=== PATIENT | female | born 1965 | race Caucasian/White ===

== ENCOUNTER 2020-08-16 06:40 | Emergency (ER) | payer BC, SELFPAY ==
--- NOTE | ~2020-08-16 | XR_ITS ---
XR abdomen/kub 1V DATE: 08/16/2020 08:16 INDICATION: Left flank pain TECHNIQUE: AP projection, 2 views COMPARISON: 08/16/2020 CT abdomen pelvis FINDINGS: There is an approximately 7 mm calcified calculus of the left renal pelvis several addition al small calcified nonobstructing left renal calculi are noted. No right renal calcified calculus. The psoas shadows are intact. No visceromegaly is evident. The bowel gas pattern is unremarkable, without evidence of obstruction. IMPRESSION: Left nephrolithiasis Reviewed, dictated and finalized at [facility]. Reviewed, dictated and finalized at [facility]. IMPRESSION: Left nephrolithiasis
--- NOTE | ~2020-08-16 | CT_ITS ---
EXAMINATION: CT abdomen pelvis wo con DATE: 08/16/2020 07:26 INDICATION: Left flank pain. History of kidney stones. TECHNIQUE: Computed tomography (CT) of the abdomen and pelvis was performed without intravenous contr ast. The dose-length product was 246.27 mGy-cm. Automated exposure control and iterative reconstructi on technique were employed. COMPARISON: 06/09/2010. FINDINGS: Lung bases are unremarkable. Heart size normal. No significant vascular abnormality. Tiny f at-containing umbilical hernia. There is a 7 mm left renal pelvis stone. There are multiple additiona l 2-3 mm left renal stones. Gallbladder is not identified, possibly surgically absent. The liver, spleen, pancreas, adrenal gland s and right kidney are unremarkable. No abnormal pelvic masses or fluid collections. Nonobstructive b owel gas pattern. No free air or free fluid. Mild levocurvature of the lumbar spine. IMPRESSION: 1. Left renal pelvic stone measuring 7 mm. 2: Nonobstructing left nephrolithiasis. Reviewed, dictated and finalized at [facility].
[2020-08-16 06:44] VITALS: BP 119/81; PULSE 70; RESP 18; TEMP 36.6; O2SAT 100
[2020-08-16 07:06] LABS: Basophils Percent Auto 0.2 % (0.2-1.2); Eosinophils Absolute Auto 0.1 K/mm3 (0-0.3); Eosinophils Percent Auto 2.4 % (0-4.4); Hematocrit 45.6 % (37.0-47.0); Immature Granulocyte Absolute 0.01 K/mm3 (0.00-0.031); Immature Granulocyte Percent A 0.2 % (0-0.5); Lymphocytes Absolute Auto 2.03 K/mm3 (0.9-3.2); Lymphocytes Percent Auto 44.5 % (18.3-44.2); Mean Corpuscular HGB Conc 32.9 g/dl (32-36); Mean Corpuscular Volume 94.2 fl (80-100); Mean Platelet Volume 10.5 fl (7.4-10.4); Monocytes Absolute Auto 0.4 K/mm3 (0.1-0.6); Monocytes Percent Auto 7.7 % (2.6-8.5); Neutrophils Absolute Auto 2.1 K/mm3 (1.3-6.7); Platelet Count Result 217 k/mm3 (150-375); Red Blood Count 4.84 M/mm3 (4.2-5.4); Red Cell Distribution Width 13.5 % (11.5-14.5); White Blood Count 4.6 K/mm3 (4.5-10.0)
[2020-08-16 07:15] LABS: Add Urine Microscopic? YES; Appearance Urine Cloudy (Clear); Bacteria Urine Trace /hpf; Bilirubin Urine Negative (Negative); Blood Urine Negative (Negative); Color Urine Yellow (Yellow); Glucose Urine UA Negative (Negative); Ketones Urine Negative (Negative); Leukocyte Esterase Ur Negative LEU/UL (Negative); Mucus Urine Rare /lpf; Nitrate Urine Negative (Negative); Protein Urine Negative (Negative); RBC Urine 21-50 /hpf (0-2); Specific Grav Ur 1.019 (1.001-1.035); Squamous Epithelial Cell Urine Moderate /hpf (Few); Urobilinogen Urine Negative mg/dL (<2.0); WBC Urine 0-3 /hpf
[2020-08-16 07:17] LABS: Alanine Aminotransferase 23 U/L (4-35); Albumin Level 4.9 g/dL (3.5-5.1); Alkaline Phosphatase 64 U/L (38-126); Anion Gap 7 mmol/L (8-16); Aspartate Amino Transferase 27 U/L (14-36); Bilirubin,Total 0.5 mg/dL (0.2-1.3); Blood Urea Nitrogen 26 mg/dL (7-17); Calcium 10.3 mg/dL (8.4-10.2); Carbon Dioxide 31 mmol/L (22-30); Chloride 102 mmol/L (98-107); Estimated CRCL calculation 69 ml/min; Estimated Glomerular Filt Rate > 60; Glucose 97 mg/dL (65-105); Potassium 3.9 mmol/L (3.4-5.0); Sodium 140 mmol/L (137-145)
--- NOTE | 2020-08-16 07:41 | ED.GENADULT ---
HPI - General Adult General Chief complaint: Abdominal Pain Stated complaint: kidney stone Time Seen by Provider: 08/16/20 07:08 Source: patient History of Present Illness HPI narrative: Patient is a 55 y/o female complaining of left side pain starting approximately 4 hours ago. She describes her pain dull and sharp sometimes. She rates it as 5-6/10. There is no pain radiation. She has some nausea, but no vomiting. She has no dysuria or hematuria. She states that she had history of kidney stone. Related Data Home Medications Medication Instructions Recorded Confirmed rizatriptan 10 mg tablet 10 mg PO Q2-4H PRN tablet 07/08/19 04/13/20 ibuprofen 800 mg tablet 800 mg PO Q6H PRN 05/17/20 Allergies Allergy/AdvReac Type Severity Reaction Status Date / Time ioversol Allergy Unknown Difficulty Verified 08/16/20 06:47 breathing dexamethasone Allergy Other Verified 08/16/20 06:48 Contrast Media Allergy Unknown RASH Uncoded 08/16/20 08:42 Review of Systems Constitutional: Constitutional: Denies chills, Denies fever(s), Denies headache(s) and Denies weakness Eyes: Eyes: Denies blurry vision ENT: Denies headache(s) and Denies neck pain Cardiovascular: Cardiovascular: Denies chest pain and Denies dyspnea Respiratory: Respiratory: Denies cough and Denies dyspnea Gastrointestinal: Gastrointestinal: Denies abdominal pain, Denies diarrhea, Reports nausea and Denies vomiting Genitourinary: Genitourinary: Reports as per HPI, Denies hematuria, Denies dysuria and Reports flank pain Musculoskeletal: Musculoskeletal: Denies back pain and Denies neck pain Neurologic: Denies headache(s) and Denies weakness [facility] Past Medical History Medical History Abnormal finding on chest xray Acute bronchitis Benign essential HTN Chest pain Chronic anxiety Colon cancer screening Cough 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 Encounter for wellness examination in adult Exposure to COVID-19 virus Gastritis Irritable bowel syndrome with constipation and diarrhea Menorrhagia with irregular cycle Migraine without aura and responsive to treatment Osteoarthritis involving multiple joints on both sides of body Personal history of malignant melanoma Renal and ureteric calculus Family History Family History Mother Diabetes mellitus Hypertension Acute myocardial infarction Family history of Parkinson's disease Family history of coronary artery disease Sibling Diabetes mellitus Family history of gout Hypertension Patient's sister is in good health Patient's brother is in good health Father Family history of gout Hypertension Patient's father is in good health Grandparent Acute myocardial infarction, Onset Age: 74 Social History Social History Smoking status: Former smoker Smoking end date: 05/28/88 Alcohol intake: current Exam Const: General: no acute distress and well developed Orientation/consciousness: oriented to person, oriented to place, oriented to time and patient oriented x3 HENMT: Head: normocephalic Ears: external ears normal General nose exam: Normal external nose present Eyes: General: appearance normal, both eyes and all related structures Conjunctivae: conjunctivae normal Neck: Neck: normal visual inspection and full ROM Chest: Chest palpation & inspection: normal inspection of the chest and no tenderness Resp: Effort & Inspection: normal respiratory effort Auscultation: clear to auscultation bilaterally Cardio: Rate: regular rate Rhythm: regular rhythm GI: GI Palp: No abdominal tenderness and Yes Soft to palpation Skin: General skin exam: normal color and turgor normal Neuro: General: oriented to person, oriented to place, oriented to time and patient oriented x3 Cognition (Neuro): normal cognition Extrem: G
[2020-08-16] MEDS: KETOROLAC 30 MG/ML VIAL (*BKC) IV PUSH (07:55)
[2020-08-16] MEDS: SODIUM CHLORIDE 0.9% IV 1,000 ML 999 ML IV CONT (07:56)
[2020-08-16] MEDS: ONDANSETRON INJ 4 MG/2 ML VIAL IV PUSH (08:32)
[2020-08-16 09:31] VITALS: BP 123/75; PULSE 56; RESP 16; O2SAT 100
== END 2020-08-16 09:32 | disposition home or self-care (01) ==
PROVIDERS: Emergency Medicine; Emergency Provider Emergency Medicine; PCP Family Medicine
DX: N20.0 Calculus of kidney (principal); I10 Essential (primary) hypertension; Z86.16 Personal history of COVID-19; Q79.60 Ehlers-Danlos syndrome, unspecified; K58.2 Mixed irritable bowel syndrome; M19.90 Unspecified osteoarthritis, unspecified site; Z87.442 Personal history of urinary calculi; Z87.891 Personal history of nicotine dependence
CPT/HCPCS: 36415; 74018; 74176; 80053; 81001; 85025; 96361; 96374; 96375; 99284; J1885; J2405; J7030

== ENCOUNTER 2020-08-20 01:26 | Day surgery (SDC) | payer BC, SELFPAY ==
[2020-08-18 08:54] VITALS: BMI 27.4
--- NOTE | 2020-08-19 09:58 | WPDANESEPPF ---
Anes - Initial Pre Proc Eval Procedure: Operation Date: 08/20/20 08:30 Proposed Procedures p Left Extracorporeal Shock Wave Lithotripsy - Jose A Gee MD Date/Time: 08/19/20 09:58 Surgeon: Jose A Gee MD Pre Op Diagnosis: Left Renal stone Patient Data Age: 55 Gender: F Height: 1.63 m Weight: 72.5 kg Allergies Allergy/AdvReac Type Severity Reaction Status Date / Time Iodinated Contrast Media Allergy Unknown Rash Verified 08/20/20 06:10 ioversol Allergy Unknown Difficulty Verified 08/18/20 08:50 breathing dexamethasone AdvReac Other Verified 08/18/20 08:50 Contrast Media Allergy Unknown RASH Uncoded 08/18/20 08:50 Home Medications Medication Instructions Recorded Confirmed Type rizatriptan 10 mg tablet 10 mg PO Q2-4H PRN tablet 07/08/19 08/20/20 History hydrocodone 7.5 mg-acetaminophen 1 tablet PO Q4H PRN #30 tablet 04/13/20 08/18/20 Rx 325 mg tablet hydrocodone-acetaminophen 1 tablet PO Q6H PRN #20 tablet 08/16/20 08/18/20 Rx alprazolam 0.25 mg PO HS 08/18/20 08/20/20 History amlodipine 5 mg PO HS 08/18/20 08/20/20 History ascorbic acid (vitamin C) [Vitamin 1 g PO HS 08/18/20 08/20/20 History C] calcium carbonate-vitamin D2 1 tablet PO HS 08/18/20 08/20/20 History [Calcium + Vitamin D] cholecalciferol (vitamin D3) 4,000 unit PO HS 08/18/20 08/20/20 History [Vitamin D3] irbesartan 300 mg PO HS 08/18/20 08/20/20 History meloxicam 15 mg PO HS 08/18/20 08/20/20 History vitamin R86-skpli acid 1 tablet PO HS 08/18/20 08/20/20 History Patient hx anesthesia problems: none Family hx anesthesia problems: none PMFSH Past Medical History Medical History Abnormal finding on chest xray Acute bronchitis Benign essential HTN Chest pain Chronic anxiety Colon cancer screening Cough 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 Encounter for wellness examination in adult Exposure to COVID-19 virus Gastritis Irritable bowel syndrome with constipation and diarrhea Menorrhagia with irregular cycle Migraine without aura and responsive to treatment Osteoarthritis involving multiple joints on both sides of body Personal history of malignant melanoma Renal and ureteric calculus Family History Family History Mother Diabetes mellitus Hypertension Acute myocardial infarction Family history of Parkinson's disease Family history of coronary artery disease Sibling Diabetes mellitus Family history of gout Hypertension Patient's sister is in good health Patient's brother is in good health Father Family history of gout Hypertension Patient's father is in good health Grandparent Acute myocardial infarction, Onset Age: 74 Social History Social History Smoking packs per day: 2.5 Smoking cigarettes per day: 50.0 Years smoked: 10 Smoking pack-years: 25.00 Smoking status: Former smoker Smoking end date: 02/25/89 Alcohol intake: current Drinks per week: 2 Substance use: never Substance use type: does not use Living arrangements: with family Spiritual care concerns: No Anes - Eval Final PreProcedure Day of Procedure 08/19/20 09:58 Patient weight: overweight Heart: regular rate and rhythm Lungs: clear to auscultation and normal air movement Airway: Mallampati scale class II Neurological: alert and oriented Last oral intake: >/= 8 hours ASA classification: III Emergent: no Anesthetic plan: proceed Anesthesia type and monitoring: general LMA and standard monitoring Informed Consent: The patient's anesthetic plan and its attendant risks and benefits were discussed with the patient/family/POA. Questions were solicited and answers provided to the satisfaction of the patient/family/POA.
[2020-08-20] VITALS (13 sets, daily range): BP systolic 112–150; BP diastolic 52–98; PULSE 56–74; RESP 12–20; TEMP 36.1–36.7; O2SAT 94–100
--- NOTE | ~2020-08-20 | XR_ITS ---
XR abdomen/kub 1V DATE: 08/20/2020 06:48 INDICATION: Lithotripsy. Nephrolithiasis. TECHNIQUE: AP projection, 2 views COMPARISON: 08/16/2020 KUB FINDINGS: There is a 7 mm rounded calcification overlying the left renal pelvis and the 3 small calci fications overlying the upper and lower pole of the left kidney. No right renal calcifications are noted. No calcifications are noted overlying the ureters. The psoas shadows are intact. No visceromegaly. There is a prominent amount fecal material in the colon but no evidence of bowel obstruction. IMPRESSION: Left nephrolithiasis Reviewed, dictated and finalized at [facility]. Reviewed, dictated and finalized at [facility]. IMPRESSION: Left nephrolithiasis
--- NOTE | 2020-08-20 06:05 | ECG_ITS ---
Measurements Intervals [place] Rate: 65 P: 45 CA: 158 QRS: -20 QRSD: 102 T: 17 QT: 396 QTc: 413 Interpretive Statements SINUS RHYTHM INCOMPLETE RIGHT BUNDLE BRANCH BLOCK BORDERLINE ECG Electronically Signed On 08-20-2020 7:56:11 CDT by Domenic Vale D.O.
--- NOTE | 2020-08-20 06:34 | WPDHPUPDATE1 ---
History and Physical Update Update Date/Time: 08/20/20 06:34 History and Physical has been reviewed, including an updated exam of the patient. There are NO changes in the patient's condition. Risks, benefits, and alternatives have been discussed and questions answered. Patient agrees to proceed with procedure.
[2020-08-20] MEDS: LACTATED RINGERS 1,000 ML 30 ML IV CONT ×2 (07:40→09:21)
[2020-08-20 07:57] LABS: INR 0.8; Prothrombin Time 11.7 Seconds (11.1-14.7)
[2020-08-20 07:58] LABS: Partial Thromboplastin Time 26.6 SECONDS (22.3-36.8)
[2020-08-20] MEDS: ceFAZolin 2 GM/D5W 50 ML 2 GM/50 ML BAG IVPB (08:38)
--- NOTE | 2020-08-20 08:55 | PM.PROC ---
Procedure Note - Detailed Date of procedure: 08/20/20 Pre-op diagnosis: Left Renal stone Post-op diagnosis: same Procedure performed: Left ESWL Description of procedure: The patient was brought to the operative suite where she was placed in the supine position on the Dornier lithotripsy table. The focal point of the lithotripter was placed at a calcified, 7mm left renal calculus. A total of 2500 shocks were delivered at a power setting of 4. There appeared to be good fragmentation of the stone. The patient tolerated the procedure well and was taken to the recovery room in good condition. Anesthesia: GLMA Surgeon: Jose A Gee MD Drains: No Packing: No Pathology: none sent Complications: No immediate complications Condition: stable Disposition: PACU
[2020-08-20] MEDS: fentaNYL CITRATE INJ (*CRX) 100 MCG/2 ML VIAL 25 MCG IV PUSH ×4 (09:31→09:45)
[2020-08-20] MEDS: ONDANSETRON INJ 4 MG/2 ML VIAL IV PUSH (09:40)
[2020-08-20] MEDS: HYDROmorphone HCL INJ (*CRX) 1 MG/ML SYR 0.5 MG IV PUSH ×2 (09:58→10:04)
--- NOTE | 2020-08-20 10:49 | ECG_ITS ---
Measurements Intervals [place] Rate: 70 P: 40 VT: 154 QRS: -15 QRSD: 101 T: 0 QT: 395 QTc: 427 Interpretive Statements SINUS RHYTHM WITH SINUS ARRHYTHMIA INCOMPLETE RIGHT BUNDLE BRANCH BLOCK NONSPECIFIC T-WAVE ABNORMALITY- ANT/INF LEADS BASELINE ARTIFACT- I, II, III, AVR, AVL, AVF BORDERLINE ECG Electronically Signed On 08-20-2020 12:18:27 CDT by Domeinc Vale D.O.
--- NOTE | 2020-08-20 10:58 | SUR.PHASEII ---
1044- RN into room and patient complaining of pain to right shoulder and left mid chest eipgastric area. Patient describing chest pressure 3/10 at this time. Palpated patient's chest with no relief to chest pressure. 1046- Call to Dr. Alba to notify him of above and to come see patient in outpatient recovery room 15. 1047- Dr. Alba to outpatient recovery room 15 and patient remains sitting up in recliner. Patient continues to complain of pain to right shoulder and left mid chest eipgastric area. Patient describing chest pressure 3/[address] Alba palpated patient's chest with no relief to chest pressure. Vital signs obtained at this time and remain stable, HR 70, BP 150/71, RR 20, 99% on room air. STAT orders obtained per Dr. Alba for EKG and Troponins. Will continue to monitor patient. 1111- EKG complete and call to Dr. Alba to review it.
--- NOTE | 2020-08-20 11:24 | SUR.PHASEII ---
1120- Dr. Alba reviewed EKG. Troponins remain pending at this time. Notified him patient complaining of chest pressure and right shoulder pain 2 with stable vital signs.
[2020-08-20 11:38] LABS: Troponin I < 0.012 ng/mL (0.000-0.034)
--- NOTE | 2020-08-20 11:50 | SUR.PHASEII ---
1150- Notified Dr. Alba patient's troponins < 0.012. He will see patient at bedside in outpatient recovery room 15.
--- NOTE | 2020-08-20 12:04 | SUR.PHASEII ---
1203- Dr. Alba to outpatient recovery 15 to evaluate patient. Patient reporting chest pressure and right shoulder pain intermittent at this time. Rating pain at 2/10. Vital signs continue to remain stable. 1205- Dr. Alba cleared patient for discharge and patient verbalizing understanding.
--- NOTE | 2020-08-20 12:14 | WPDANESPN ---
Anes - Prog Note Post-Op Date/Time: 08/20/20 12:14 Cardiovascular status: normal Respiratory status: normal Airway patency: baseline Mental status: baseline Post-Op hydration status: normal Vital Signs: Last Vital Signs Temp 36.1 C L 08/20/20 09:21 Pulse 72 08/20/20 12:00 Resp 16 08/20/20 12:00 BP 117/68 08/20/20 12:00 Pulse Ox 97 08/20/20 12:00 Pain Score (VAS): 2 I/O: Intake & Output 08/19/20 08/20/20 08/20/20 23:59 07:59 15:59 Intake Total 550 Balance 550 08/20/20 08/20/20 07:35 10:53 PT 11.7 INR 0.8 APTT 26.6 Troponin I < 0.012 Post-procedural complaints: none Patient Feedback: Patient satisfied with anesthetic care. Other Findings: Called to evaluate patient for chest pressure with radiation to right arm. EKG and troponin obtained. EKG was same as baseline with incomplete RBBB on both prior and present EKG. Troponin negative. After returning to discuss findings with patient, patient states pain is intermittent to resolved. Patient plans to follow up with cardiothoracic at [place] to assess her pulmonary hypertension so I told patient to mention this episode as well. I told patient if this pain returns or worsens to return to ED but otherwise if comfortable is ok to discharge to home.
== END 2020-08-20 12:22 | disposition home or self-care (01) ==
PROVIDERS: Anesthesiology; PCP Family Medicine; Visit Provider Urology
PROC: (CPT 50590; principal; 2020-08-20 08:30)
DX: N20.0 Calculus of kidney (principal); I10 Essential (primary) hypertension; Q79.60 Ehlers-Danlos syndrome, unspecified; K58.2 Mixed irritable bowel syndrome; F41.9 Anxiety disorder, unspecified; M89.49 Other hypertrophic osteoarthropathy, multiple sites; Z85.820 Personal history of malignant melanoma of skin; Z86.16 Personal history of COVID-19; Z87.891 Personal history of nicotine dependence
CPT/HCPCS: 50590; 36415; 74018; 84484; 85610; 85730; 93005; A9270; J0690; J1170; J1200; J1885; J2405; J2704; J3010; J7120

== ENCOUNTER 2020-08-22 03:24 | Observation (INO) | payer BC, SELFPAY ==
[2020-08-22] VITALS (13 sets, daily range): BP systolic 94–147; BP diastolic 51–82; PULSE 47–98; RESP 10–21; TEMP 36–36.8; O2SAT 61–100
--- NOTE | ~2020-08-22 | XR_ITS ---
EXAMINATION: XR abdomen/kub 1V INDICATION: Left flank pain TECHNIQUE: Supine views of the abdomen were obtained on 2 radiographs. COMPARISON: CT from today and KUB dated 08/20/2020 FINDINGS: There is a 7 mm stone projecting at the left ureterovesicular junction. A 3 mm stone projec ts in the distal left ureter. The 6 mm left proximal ureteral stone seen on CT is not definitely iden tified. There are stones of the left kidney lower pole which measure up to 8 mm. A large volume of co lonic stool is noted. The lung bases are clear. There is mild osteoarthritis of the hips. The bowel g as pattern is normal. IMPRESSION: 1. Stones at the left ureterovesicular junction and in the distal left ureter. 2. Left nephrolithiasis. Reviewed, dictated and finalized at location A.
--- NOTE | ~2020-08-22 | XR_ITS ---
EXAMINATION: XR retrograde pyelo w/stent LT INDICATION: Left urolithiasis TECHNIQUE: 40 intraoperative fluoroscopic images are submitted for review. COMPARISON: CT from today FINDINGS: Fluoroscopic images demonstrate moderate left hydronephrosis. A left internal ureteral sten t is in expected position on final images. Please refer to procedure note for full details. IMPRESSION: 1. Left internal ureteral stent in expected position. Please refer to procedure note for full details . Reviewed, dictated and finalized at location A. IMPRESSION: 1. Left internal ureteral stent in expected position. Please refer to procedure note for full details.
--- NOTE | ~2020-08-22 | CT_ITS ---
EXAMINATION: CT abdomen pelvis wo con DATE: 08/22/2020 04:25 INDICATION: Left flank pain TECHNIQUE: Computed tomography (CT) of the abdomen and pelvis was performed without intravenous contr ast. The dose-length product (DLP) was 595.68 mGy-cm. Automated exposure control and iterative recons truction technique were employed. COMPARISON: 08/16/2020 FINDINGS: Minimal dependent atelectasis is present in the lung bases. The heart size is normal. The g allbladder is surgically absent. There is a 9 mm cyst in the right hepatic lobe. The spleen, pancreas , and adrenal glands are normal. There is an 8 mm stone at the left ureterovesicular junction. A 3 mm stone fragment is present in the distal left ureter. A subtle 2 mm x 6 mm nonobstructing stone in th e proximal left ureter. Stone fragments are noted in the left renal pelvis. There is moderate left hy droureteronephrosis. A previously seen stone of the left renal pelvis is no longer evident, consisten t with interval treatment. There are stones measuring up to 7 mm in the lower pole of the left kidney . No pathologically enlarged abdominal or pelvic lymph nodes are identified. No pathologically enlarg ed abdominal or pelvic lymph nodes are identified. There is no free intraperitoneal gas or evidence o f bowel obstruction. There is unchanged mild enlargement of the appendix without additional findings to suggest appendicitis. A fat-containing umbilical hernia is noted. There is mild lumbar spondylosis . IMPRESSION: 1. Stone fragments in the left renal pelvis, proximal ureter, the distal ureter, and at the left uret erovesicular junction causing moderate hydroureteronephrosis. 2. Nonobstructing left nephrolithiasis. Reviewed, dictated and finalized at location A. IMPRESSION: 1. Stone fragments in the left renal pelvis, proximal ureter, the distal ureter , and at the left ureterovesicular junction causing moderate hydroureteronephro sis. 2. Nonobstructing left nephrolithiasis.
--- NOTE | 2020-08-22 03:37 | ED.GENADULT ---
HPI - General Adult General Chief complaint: Urogenital-Female Stated complaint: flank pain Time Seen by Provider: 08/22/20 03:27 History of Present Illness HPI narrative: Patient is a 55-year-old female who presents to the emergency department chief complaint of flank pain patient reports she had lithotripsy on a left-sided kidney stone that was 7 mm in size. Patient states that yesterday she started having us flank pain states that the pain ultimately subsided on its own but tonight the pain started several hours ago she took a Percocet and had no improvement in the pain. The patient states he is unable to get comfortable in any position and feels as though she is been passing multiple stones. Patient reports has had some nausea with this denies fever or chills. Related Data Home Medications Medication Instructions Recorded Confirmed rizatriptan 10 mg tablet 10 mg PO Q2-4H PRN tablet 07/08/19 08/20/20 Vitamin D3 4,000 unit PO HS 08/18/20 08/20/20 alprazolam 0.25 mg PO HS 08/18/20 08/20/20 amlodipine 5 mg PO HS 08/18/20 08/20/20 ascorbic acid (vitamin C) [Vitamin 1 g PO HS 08/18/20 08/20/20 C] calcium carbonate-vitamin D2 1 tablet PO HS 08/18/20 08/20/20 irbesartan 300 mg PO HS 08/18/20 08/20/20 meloxicam 15 mg PO HS 08/18/20 08/20/20 vitamin P65-hmtik acid 1 tablet PO HS 08/18/20 08/20/20 Allergies Allergy/AdvReac Type Severity Reaction Status Date / Time Iodinated Contrast Media Allergy Unknown Rash Verified 08/22/20 03:31 ioversol Allergy Unknown Difficulty Verified 08/22/20 03:31 breathing dexamethasone AdvReac Other Verified 08/22/20 03:31 Contrast Media Allergy Unknown RASH Uncoded 08/18/20 08:50 Review of Systems Review of Systems: Narrative: A 10 system review of systems was completed on the patient and is negative except for what is stated in the HPI. Nursing and ancillary documentation was reviewed. 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 Encounter for wellness examination in adult Exposure to COVID-19 virus Gastritis Irritable bowel syndrome with constipation and diarrhea Menorrhagia with irregular cycle Migraine without aura and responsive to treatment Osteoarthritis involving multiple joints on both sides of body Personal history of malignant melanoma Renal and ureteric calculus Family History Family History Mother Diabetes mellitus Hypertension Acute myocardial infarction Family history of Parkinson's disease Family history of coronary artery disease Sibling Diabetes mellitus Family history of gout Hypertension Patient's sister is in good health Patient's brother is in good health Father Family history of gout Hypertension Patient's father is in good health Grandparent Acute myocardial infarction, Onset Age: 74 Social History Social History Smoking packs per day: 2.5 Smoking cigarettes per day: 50.0 Years smoked: 10 Smoking pack-years: 25.00 Smoking status: Former smoker Smoking end date: 02/25/89 Alcohol intake: current Drinks per week: 2 Substance use: never Substance use type: does not use Spiritual care concerns: No Exam Narrative: Exam Narrative: GENERAL: Well-appearing, well-nourished, and in no acute distress. HEAD: Normocephalic, atraumatic. EYES: PERRLA and EOMI. ENT: Nares clear, no rhinorrhea or epistaxis. Mucous membranes moist. NECK: Supple. CHEST: Clear to auscultation. No respiratory distress. HEART: Regular rate and rhythm. No murmur heard. Normal peripheral pulses. ABDOMEN: Soft, nontender, nondistended, normal active bowel sounds. EXTREMITIES: Yesenia
[2020-08-22] MEDS: SODIUM CHLORIDE 0.9% IV 1,000 ML 999 ML IV CONT (03:49)
[2020-08-22] MEDS: MORPHINE SULFATE (*CRX) 4 MG/ML INJ IV PUSH ×3 (03:49→06:57)
[2020-08-22] MEDS: ONDANSETRON INJ 4 MG/2 ML VIAL IV PUSH (03:49)
[2020-08-22] MEDS: KETOROLAC 30 MG/ML VIAL (*BKC) IV PUSH ×2 (03:49→08:52)
[2020-08-22 03:53] LABS: Basophils Percent Auto 0.3 % (0.2-1.2); Eosinophils Absolute Auto 0.2 K/mm3 (0-0.3); Eosinophils Percent Auto 2.8 % (0-4.4); Hematocrit 42.4 % (37.0-47.0); Hemoglobin 13.8 g/dL (12.0-15.0); Immature Granulocyte Absolute 0.01 K/mm3 (0.00-0.031); Immature Granulocyte Percent A 0.1 % (0-0.5); Lymphocytes Absolute Auto 2.05 K/mm3 (0.9-3.2); Lymphocytes Percent Auto 27.8 % (18.3-44.2); Mean Corpuscular HGB Conc 32.5 g/dl (32-36); Mean Corpuscular Hemoglobin 30.6 pg (26-34); Mean Platelet Volume 10.4 fl (7.4-10.4); Monocytes Absolute Auto 0.6 K/mm3 (0.1-0.6); Monocytes Percent Auto 7.5 % (2.6-8.5); Neutrophils Absolute Auto 4.5 K/mm3 (1.3-6.7); Neutrophils Percent Auto 61.5 % (45.5-73.1); Platelet Count Result 178 k/mm3 (150-375); Red Blood Count 4.51 M/mm3 (4.2-5.4); Red Cell Distribution Width 13.6 % (11.5-14.5); White Blood Count 7.4 K/mm3 (4.5-10.0)
[2020-08-22 04:07] LABS: Alanine Aminotransferase 91 U/L (4-35); Albumin Level 4.5 g/dL (3.5-5.1); Alkaline Phosphatase 79 U/L (38-126); Anion Gap 7 mmol/L (8-16); Aspartate Amino Transferase 44 U/L (14-36); Bilirubin,Total 0.5 mg/dL (0.2-1.3); Blood Urea Nitrogen 24 mg/dL (7-17); Calcium 10.6 mg/dL (8.4-10.2); Carbon Dioxide 30 mmol/L (22-30); Chloride 104 mmol/L (98-107); Estimated CRCL calculation 58 ml/min; Estimated Glomerular Filt Rate 58; Glucose 95 mg/dL (65-105); Potassium 4.1 mmol/L (3.4-5.0); Sodium 141 mmol/L (137-145)
[2020-08-22 05:19] LABS: Add Urine Microscopic? YES; Appearance Urine Clear (Clear); Bacteria Urine Trace /hpf; Bilirubin Urine Negative (Negative); Blood Urine 3+ (Negative); Color Urine Straw (Yellow); Glucose Urine UA Negative (Negative); Ketones Urine Negative (Negative); Leukocyte Esterase Ur Negative LEU/UL (Negative); Mucus Urine Rare /lpf; Nitrate Urine Negative (Negative); Protein Urine 1+ mg/dL (Negative); RBC Urine >75 /hpf (0-2); Specific Grav Ur 1.011 (1.001-1.035); Squamous Epithelial Cell Urine Rare /hpf (Few); Urobilinogen Urine Negative mg/dL (<2.0); WBC Urine 0-3 /hpf
--- NOTE | 2020-08-22 05:49 | ADMGEN ---
This patient, Faby Joaquin, was admitted to 2 Medical Room 259-01 @[facility]. Patient/family oriented to hospital policies and general routines including ID bracelet, bed and alarms, visiting hours, pain management, procedures, bathroom and other care routines, personal items, smoking policy, room service/diet, and visiting hours. Information on how to activate the Rapid Response Team has been discussed. Patient/Family are encouraged to report perceived risks to care and to ask questions if they do not understand what they are told or what they should do.
[2020-08-22] MEDS: SODIUM CHLORIDE 0.9% IV 1,000 ML 125 ML IV CONT (06:08)
--- NOTE | 2020-08-22 09:18 | PM.IMHP ---
H&P: HPI History of Present Illness Date/Time: 08/22/20 09:18 Patient is a pleasant 55-year-old female who is status post ESWL for a 7 mm left renal pelvic stone just 2 days ago. She presented to the ER last night with severe left flank pain, nausea and vomiting. She denied fevers chills. CT imaging revealed several fragments obstructing her left ureter, the largest at the left ureterovesical junction. She was admitted for hydration and analgesics. 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 Encounter for wellness examination in adult Exposure to COVID-19 virus Gastritis Irritable bowel syndrome with constipation and diarrhea Menorrhagia with irregular cycle Migraine without aura and responsive to treatment Osteoarthritis involving multiple joints on both sides of body Personal history of malignant melanoma Renal and ureteric calculus Family History Family History Mother Diabetes mellitus Hypertension Acute myocardial infarction Family history of Parkinson's disease Family history of coronary artery disease Sibling Diabetes mellitus Family history of gout Hypertension Patient's sister is in good health Patient's brother is in good health Father Family history of gout Hypertension Patient's father is in good health Grandparent Acute myocardial infarction, Onset Age: 74 Social History Social History Smoking packs per day: 2.5 Smoking cigarettes per day: 50.0 Years smoked: 10 Smoking pack-years: 25.00 Smoking status: Former smoker Smoking end date: 02/25/89 Alcohol intake: current Drinks per week: 2 Substance use: never Substance use type: does not use Gender identity (if verbalized by the patient): Female Spiritual care concerns: No Meds Home Medications and Allergies Home Medications Medication Instructions Recorded Confirmed Type rizatriptan 10 mg tablet 10 mg PO Q2-4H PRN tablet 07/08/19 08/22/20 History hydrocodone 7.5 mg-acetaminophen 1 tablet PO Q4H PRN #30 tablet 04/13/20 08/22/20 Rx 325 mg tablet hydrocodone-acetaminophen 1 tablet PO Q6H PRN #20 tablet 08/16/20 08/22/20 Rx Vitamin D3 4,000 unit PO HS 08/18/20 08/22/20 History alprazolam 0.25 mg PO HS 08/18/20 08/22/20 History amlodipine 5 mg PO HS 08/18/20 08/22/20 History ascorbic acid (vitamin C) [Vitamin 1 g PO HS 08/18/20 08/22/20 History C] calcium carbonate-vitamin D2 1 tablet PO HS 08/18/20 08/22/20 History irbesartan 300 mg PO HS 08/18/20 08/22/20 History meloxicam 15 mg PO HS 08/18/20 08/22/20 History vitamin H95-jihws acid 1 tablet PO HS 08/18/20 08/22/20 History cephalexin 500 mg PO Q8H #9 cap 08/20/20 08/22/20 Rx Allergies Allergy/AdvReac Type Severity Reaction Status Date / Time Iodinated Contrast Media Allergy Unknown Rash Verified 08/22/20 05:51 ioversol Allergy Unknown Difficulty Verified 08/22/20 05:51 breathing dexamethasone AdvReac Other Verified 08/22/20 05:51 Contrast Media Allergy Unknown RASH Uncoded 08/18/20 08:50 Vital Signs Vital Signs - 24 hr 08/22/20 03:27 08/22/20 04:45 08/22/20 05:40 Temperature 97.3 F L 98.1 F Pulse Rate 71 96 95 Respiratory Rate 20 20 18 Blood Pressure 147/82 H 131/61 130/60 Pulse
--- NOTE | 2020-08-22 09:21 | WPDHPUPDATE1 ---
History and Physical Update Update Date/Time: 08/22/20 09:21 History and Physical has been reviewed, including an updated exam of the patient. There are NO changes in the patient's condition. Risks, benefits, and alternatives have been discussed and questions answered. Patient agrees to proceed with procedure.
--- NOTE | 2020-08-22 10:52 | WPDANESEPPF ---
Anes - Initial Pre Proc Eval Procedure: Operation Date: 08/22/20 09:30 Proposed Procedures p Cysto, RPG, Stone Ext, Stent Placement(Left) - Jose A Gee MD Date/Time: 08/22/20 10:52 Surgeon: Jose A Gee MD Pre Op Diagnosis: Ureterolithiasis Patient Data Age: 55 Gender: F Height: 1.63 m Weight: 78.2 kg Last Vital Signs Temp 36.3 C L 08/22/20 10:00 Pulse 54 L 08/22/20 10:00 Resp 16 08/22/20 10:00 BP 102/51 L 08/22/20 10:00 Pulse Ox 98 08/22/20 10:00 Allergies Allergy/AdvReac Type Severity Reaction Status Date / Time Iodinated Contrast Media Allergy Unknown Rash Verified 08/22/20 05:51 ioversol Allergy Unknown Difficulty Verified 08/22/20 05:51 breathing dexamethasone AdvReac Other Verified 08/22/20 05:51 Contrast Media Allergy Unknown RASH Uncoded 08/18/20 08:50 Home Medications Medication Instructions Recorded Confirmed Type rizatriptan 10 mg tablet 10 mg PO Q2-4H PRN tablet 07/08/19 08/22/20 History hydrocodone 7.5 mg-acetaminophen 1 tablet PO Q4H PRN #30 tablet 04/13/20 08/22/20 Rx 325 mg tablet hydrocodone-acetaminophen 1 tablet PO Q6H PRN #20 tablet 08/16/20 08/22/20 Rx Vitamin D3 4,000 unit PO HS 08/18/20 08/22/20 History alprazolam 0.25 mg PO HS 08/18/20 08/22/20 History amlodipine 5 mg PO HS 08/18/20 08/22/20 History ascorbic acid (vitamin C) [Vitamin 1 g PO HS 08/18/20 08/22/20 History C] calcium carbonate-vitamin D2 1 tablet PO HS 08/18/20 08/22/20 History irbesartan 300 mg PO HS 08/18/20 08/22/20 History meloxicam 15 mg PO HS 08/18/20 08/22/20 History vitamin U04-rogni acid 1 tablet PO HS 08/18/20 08/22/20 History cephalexin 500 mg PO Q8H #9 cap 08/20/20 08/22/20 Rx Laboratory Tests 08/22/20 08/22/20 08/22/20 03:44 03:44 04:34 WBC 7.4 K/mm3 K/mm3 (4.5-10.0) RBC 4.51 M/mm3 M/mm3 (4.2-5.4) Hgb 13.8 g/dL g/dL (12.0-15.0) Hct 42.4 % % (37.0-47.0) MCV 94.0 fl fl (80-100) MCH 30.6 pg pg (26-34) MCHC 32.5 g/dl g/dl (32-36) RDW 13.6 % % (11.5-14.5) Plt Count 178 k/mm3 k/mm3 (150-375) MPV 10.4 fl fl (7.4-10.4) Immature Gran % (Auto) 0.1 % % (0-0.5) Neut % (Auto) 61.5 % % (45.5-73.1) Lymph % (Auto) 27.8 % % (18.3-44.2) [place] % (Auto) 7.5 % % (2.6-8.5) Eos % (Auto) 2.8 % % (0-4.4) Baso % (Auto) 0.3 % % (0.2-1.2) Lymph # (Auto) 2.05 K/mm3 K/mm3 (0.9-3.2) [place] # (Auto) 0.6 K/mm3 K/mm3 (0.1-0.6) Eos # (Auto) 0.2 K/mm3 K/mm3 (0-0.3) Baso # (Auto) 0.0 K/mm3 K/mm3 (0.0-0.1) Abs Immat Gran (auto) 0.01 K/mm3 K/mm3 (0.00-0.031) Absolute Neuts (auto) 4.5 K/mm3 K/mm3 (1.3-6.7) Absolute Nucleated RBC 0.0 K/mm3 K/mm3 (0.0-0.012) Nucleated RBC % 0.0 % % (0.0-0.2) Sodium 141 mmol/L mmol/L (137-145) Potassium 4.1 mmol/L mmol/L (3.4-5.0) Chloride 104 mmol/L mmol/L (98-107) Carbon Dioxide 30 mmol/L mmol/L (22-30) Anion Gap 7 mmol/L L mmol/L (8-16) BUN 24 mg/dL H mg/dL (7-17) Creatinine 1.00 mg/dL mg/dL (0.7-1.0) Estim Creat Clear Calc 58 ml/min ml/min Estimated GFR 58 L (59 - ) Glucose 95 mg/dL mg/dL (65-105) Calcium 10.6 mg/dL H mg/dL (8.4-10.2) Total Bilirubin 0.5 mg/dL mg/dL (0.2-1.3) AST 44 U/L H U/L (14-36) ALT 91 U/L H U/L (4-35) Alkaline Phosphatase 79 U/L U/L (38-126) Total Protein 8.0 g/dL g/dL (6.3-8.2) Albumin 4.5 g/dL g/dL (3.5-5.1) Urine Color Straw (Yellow) Urine Appearance Clear (Clear) Urine pH 6.0 (5.0-9.0) Ur Specific [place] 1.011 (1.001-1.035) Urine Protein 1+ mg/dL H mg/dL (Negative) Urine Glucose (UA) Neg
[2020-08-22] MEDS: ceFAZolin SODIUM 1 GM VIAL 2 GM IV PUSH (11:52)
[2020-08-22] MEDS: LIDOCAINE HCL 2% GEL UROJET 10 ML PKG MUCOUS MEM (11:57)
[2020-08-22] MEDS: LACTATED RINGERS 1,000 ML 30 ML IV CONT (12:07)
--- NOTE | 2020-08-22 12:08 | PM.PROC ---
Procedure Note - Detailed Date of procedure: 08/22/20 Pre-op diagnosis: Ureterolithiasis Post-op diagnosis: same Procedure performed: Cystoscopy, left retrograde pyelography, left ureteroscopy with stone extraction and left ureteral stent placement Description of procedure: patient is brought to the operative suite where she has prepped and draped in routine sterile fashion while in a dorsal lithotomy position. 2% xylocaine jelly was introduced intraurethrally and systemic sedation is administered per the anesthesia department. Cystoscopy is undertaken with a 19 F rigid cystoscope. There were a few small fragments of stone in her bladder. A 0.035 in glidewire was advanced in left renal pelvis. With placement of the wire multiple small stone fragments her extruded from the left distal ureter. I dilated the ureter with an 8 F 10 F dilator. Ureteroscopy was undertaken with a short tapered semi-rigid ureteral scope to the mid left ureter. There are multiple tiny fragments, most of which were extracted with irrigation and a 1.9 F disposable stone basket. There are no significant residual fragments in the ureter at the completion of this procedure, that I can identify. contrast is injected through the ureteral scope to outline the renal pelvis and a 4.8 F variable length stent is placed with the proximal coil in the renal pelvis and distal coil in the bladder. Scopes wires removed. The patient tolerated the procedure well was taken recovery room good condition Anesthesia: MAC Surgeon: Jose A Gee MD Estimated blood loss (mL): 0 Packing: No Pathology: yes Complications: No immediate complications Condition: stable Disposition: PACU
--- NOTE | 2020-08-22 12:10 | PM.DS ---
DS: Admitting Diagnosis Admitting Diagnosis Admitting Diagnosis: Left ureteral calculi DS: Discharge Diagnosis Discharge Diagnosis (1) Ureterolithiasis: Code(s): N20.1 - Calculus of ureter Status: Acute DS: Summary Hospital Course Hospital Course: Patient had undergone ESWL to a 7 mm left renal pelvic stone 2 days prior to readmission. She presented to the ER with acute left renal colic imaging suggested several fragments, from some which may have been sizable, in her left ureter. Following morning she underwent ureteroscopy which revealed multiple tiny fragments lodged at her left ureterovesical junction. These cleared with basket extraction and irrigation. There were no significant residual fragments at the termination of the procedure. A ureteral stent was placed with plans to remove it in 5 days. Following this procedure she was comfortable and tolerated diet. She was discharged later that day. Time Spent with Patient Time attestation: Total time spent providing and/or coordinating discharge services: 30min Exam Const: General: no acute distress Resp: Effort & Inspection: normal respiratory effort GI: Inspection: non-distended GI Palp: No abdominal tenderness and No Guarding due to palpation present (GI) Auscultation: normal bowel sounds DS: Data Data Completed and Pending Pending studies at discharge: Pending at discharge 08/22/20 11:59 Surgical [PTH] Routine Labs on day of discharge: Labs from last 24 hours 08/22/20 08/22/20 08/22/20 04:34 03:44 03:44 WBC 7.4 RBC 4.51 Hgb 13.8 Hct 42.4 MCV 94.0 MCH 30.6 MCHC 32.5 RDW 13.6 Plt Count 178 MPV 10.4 Immature Gran % (Auto) 0.1 Neut % (Auto) 61.5 Lymph % (Auto) 27.8 [place] % (Auto) 7.5 Eos % (Auto) 2.8 Baso % (Auto) 0.3 Lymph # (Auto) 2.05 [place] # (Auto) 0.6 Eos # (Auto) 0.2 Baso # (Auto) 0.0 Abs Immat Gran (auto) 0.01 Absolute Neuts (auto) 4.5 Absolute Nucleated RBC 0.0 Nucleated RBC % 0.0 Sodium 141 Potassium 4.1 Chloride 104 Carbon Dioxide 30 Anion Gap 7 L BUN 24 H Creatinine 1.00 Estim Creat Clear Calc 58 Estimated GFR 58 L Glucose 95 Calcium 10.6 H Total Bilirubin 0.5 AST 44 H ALT 91 H Alkaline Phosphatase 79 Total Protein 8.0 Albumin 4.5 Urine Color Straw Urine Appearance Clear Urine pH 6.0 Ur Specific [place] 1.011 Urine Protein 1+ H Urine Glucose (UA) Negative Urine Ketones Negative Ur Blood (Man) 3+ H Urine Nitrate Negative Urine Bilirubin Negative Urine Urobilinogen Negative Leukocyte Esterase Rfl Negative Urine RBC >75 H Urine WBC 0-3 Ur Squamous Epith Cells Rare Urine Bacteria Trace Urine Mucus Rare Discharge Plan Discharge Attending physician on discharge: Jose A Gee Discharging Clinician: Jose A Gee Patient Disposition: Home, Self-Care Activity: other - see discharge instructions Diet: regular Discharge Instructions: 1) Activity: no driving or important decisions x24 hours. 2) Diet: resume your normal, pre-admission diet. 3) Follow-up: Sunday08/27/20 for stent removal / call for appointment ([phone]). Patient Instructions: Antibiotic Form Stand Alone Forms: General Discharge Information Follow-up/Referrals: Jose A Gee MD [Physician] - Discharge Medications: Continued hydrocodone-acetaminophen [[place]] 7.5-325 mg tablet 1 tablet PO Q4H PRN (Reason: pain) Qty: 30 RF: 0 hydrocodone-acetaminophen 5-325 mg tablet 1 tablet PO Q6H PRN (Reason: pain) Qty: 20 RF: 0 meloxicam 15 mg tablet 15 mg PO HS RF: 0 amlodipine 5 mg tablet 5 mg PO HS RF: 0 alprazolam 0.25 mg tablet 0.25 mg PO HS RF: 0 irbesartan 300 mg tablet 300 mg PO HS RF: 0 ascorbic acid (vitamin C) [Vitamin C] 1,000 mg Tablet 1 g PO HS RF: 0 calcium carbonate-vitami
== END 2020-08-22 15:44 | disposition home or self-care (01) ==
LOC: ANHED 05:12 → ANH2MED 05:24
PROVIDERS: Admitting Provider Urology; Emergency Provider Emergency Medicine; PCP Family Medicine; Visit Provider Urology
PROC: (CPT 52352; principal; 2020-08-22 09:30)
DX: N20.1 Calculus of ureter (principal); N23 Unspecified renal colic; Z87.442 Personal history of urinary calculi
CPT/HCPCS: 52356; 36415; 74018; 74176; 74420; 80053; 81001; 82365; 85025; 88300; 96361; 96374; 96375; 96376; 99285; C1769; C2617; G0378; J0690; J1885; J2270; J2405; J7030; J7120; Q9966